=== PATIENT | male | born 1935 | race Caucasian/White ===

== ENCOUNTER → 2016-12-05 | Outpatient (CLI) | payer MEDICARE ==
[~2016-12-05] MED LIST: ACTO35TA PO; ALDA2525 PO; ALPR0.5T3 PO; ASPI81TA11 PO; AUGM875T PO; CENTRUM SILVER PO; DEGA80IN; DEGA80IN SQ; DICY20TA10 PO; FOSA70TA PO; GABA300C3 PO; GABA300C5 PO; GINS100C2; LISI20 PO; LORTA5 PO; MAGN500T4 PO; MOBI15TA PO; NEUR300C PO; OS-CTAB3 PO; SIMV5TAB3 PO; SLOW50TA PO; TAMS0.4C67 PO; ZOLP10TA3 PO
[2016-12-05 09:30] LABS: ALKALINE PHOSPHATASE 62 U/L (45-117); ALT (GPT) 24 U/L (12-78); ANION GAP 8 MEQ/L (5-15); AST (GOT) 20 U/L (15-37); BICARBONATE 26.2 MEQ/L (21.0-32.0); BLOOD UREA NITROGEN 27 MG/DL (7-18); CHLORIDE 105 MEQ/L (98-107); GLOMERULAR FILTRATION RATE 48 ML/MIN (>89); POTASSIUM 4.7 MEQ/L (3.5-5.1); SODIUM (NA) 139 MEQ/L (136-145); TOTAL BILIRUBIN ADULT 0.4 MG/DL (0.2-1.0)
[2016-12-05 10:13] LABS: RHEUMATOID FACTOR TRIGGER LESS THAN 10.0 IU/ML (0.0-14.9)
== END ==
LOC: PLAB 06:35
PROVIDERS: ATTEND Internal Medicine Rheumatology
DX: M06.4 Inflammatory polyarthropathy (principal)
CPT/HCPCS: 36415; 80053; 85652; 86140; 86200; 86430

== ENCOUNTER → 2017-01-07 | Outpatient (CLI) | payer MEDICARE ==
[2017-01-07 09:58] LABS: ANION GAP 9 MEQ/L (5-15); BLOOD UREA NITROGEN 29 MG/DL (7-18); CHLORIDE 106 MEQ/L (98-107); GLOMERULAR FILTRATION RATE 48 ML/MIN (>89); POTASSIUM 4.1 MEQ/L (3.5-5.1); SODIUM (NA) 143 MEQ/L (136-145)
== END ==
LOC: PLAB 06:48
PROVIDERS: ATTEND Internal Medicine Rheumatology
DX: M11.80 Other specified crystal arthropathies, unspecified site (principal); Z79.899 Other long term (current) drug therapy
CPT/HCPCS: 36415; 80048; 85652; 86140

== ENCOUNTER → 2017-06-10 | Outpatient (CLI) | payer MEDICARE ==
[2017-06-10 09:53] LABS: HEMATOCRIT 36.4 % (39.0-51.0); MEAN CELL VOLUME 95.6 FL (80.0-100.0); MEAN CORPUSCULAR HEMOGLOBIN 31.6 PG (27.0-34.0); PLATELET COUNT 319 TH/MM3 (150-450); RED CELL DISTRIBUTION WIDTH 14.4 % (11.6-17.2); RETIC % 0.5 % (0.4-3.0); REVIEW FLAG FINAL; WHITE BLOOD COUNT 6.8 TH/MM3 (4.0-11.0)
[2017-06-10 10:14] LABS: ANION GAP 6 MEQ/L (5-15); AST (GOT) 22 U/L (15-37); BICARBONATE 27.7 MEQ/L (21.0-32.0); BLOOD UREA NITROGEN 39 MG/DL (7-18); CHLORIDE 102 MEQ/L (98-107); GLOMERULAR FILTRATION RATE 48 ML/MIN (>89); GLUCOSE,FASTING 83 MG/DL (74-99); POTASSIUM 4.7 MEQ/L (3.5-5.1); SODIUM (NA) 136 MEQ/L (136-145)
[2017-06-10 10:18] LABS: ALKALINE PHOSPHATASE 73 U/L (45-117); ALT (GPT) 24 U/L (12-78); HDL CHOLESTEROL 62.8 MG/DL (40.0-60.0); LDL CHOLESTEROL 59 MG/DL (0-99); LDL CHOLESTEROL DIRECT 80 MG/DL (0-99); TOTAL BILIRUBIN ADULT 0.4 MG/DL (0.2-1.0)
[2017-06-10 10:23] LABS: WESTERGREN SEDIMENTATION RATE 14 mm/hr (0-20)
[2017-06-10 10:40] LABS: FERRITIN 377 NG/ML (26-388); TRANSFERRIN 170 MG/DL (200-360); TRANSFERRIN IRON PROFILE 170 MG/DL (200-360)
== END ==
LOC: PLAB 06:42
PROVIDERS: ATTEND Internal Medicine Hematology
DX: E78.5 Hyperlipidemia, unspecified (principal); I12.9 Hypertensive chronic kidney disease with stage 1 through stage 4 chronic kidney disease, or unspecified chronic kidney disease; N18.3 Chronic kidney disease, stage 3 (moderate); D63.1 Anemia in chronic kidney disease
CPT/HCPCS: 36415; 80053; 80061; 82607; 82728; 82746; 83540; 83550; 83721; 84403; 84443; 84466; 85027; 85044; 85652

== ENCOUNTER → 2017-10-16 | Outpatient (CLI) | payer MEDICARE ==
[2017-10-16 10:29] LABS: HEMATOCRIT 35.8 % (39.0-51.0); MEAN CELL VOLUME 93.8 FL (80.0-100.0); MEAN CORPUSCULAR HEMOGLOBIN 31.5 PG (27.0-34.0); MEAN CORPUSCULAR HGB CONC 33.5 % (32.0-36.0); MEAN PLATELET VOLUME 6.8 FL (7.0-11.0); PLATELET COUNT 492 TH/MM3 (150-450); RED BLOOD COUNT 3.82 MIL/MM3 (4.50-5.90); RED CELL DISTRIBUTION WIDTH 15.7 % (11.6-17.2); WHITE BLOOD COUNT 8.7 TH/MM3 (4.0-11.0)
[2017-10-16 10:37] LABS: AST (GOT) 16 U/L (15-37); CALCIUM 10.4 MG/DL (8.5-10.1); CHLORIDE 106 MEQ/L (98-107); SODIUM (NA) 137 MEQ/L (136-145)
[2017-10-16 10:40] LABS: BICARBONATE 22.8 MEQ/L (21.0-32.0); BLOOD UREA NITROGEN 50 MG/DL (7-18); CHOLESTEROL 122 MG/DL (120-200); CREATININE 1.86 MG/DL (0.60-1.30); GLOMERULAR FILTRATION RATE 35 ML/MIN (>89); GLUCOSE,FASTING 89 MG/DL (74-99); TRIGLYCERIDES 65 MG/DL (42-150)
[2017-10-16 10:46] LABS: ALKALINE PHOSPHATASE 56 U/L (45-117); ALT (GPT) 22 U/L (12-78); CHOLESTEROL/ HDL RATIO 2.76 RATIO; HDL CHOLESTEROL 44.1 MG/DL (40.0-60.0); LDL CHOLESTEROL 65 MG/DL (0-99); LDL CHOLESTEROL DIRECT 78 MG/DL (0-99); TOTAL BILIRUBIN ADULT 0.4 MG/DL (0.2-1.0); TOTAL PROTEIN 7.5 GM/DL (6.4-8.2)
== END ==
LOC: PLAB 07:00
PROVIDERS: ATTEND Urology
DX: R78.89 Finding of other specified substances, not normally found in blood (principal); C61 Malignant neoplasm of prostate; I10 Essential (primary) hypertension; E78.5 Hyperlipidemia, unspecified
CPT/HCPCS: 36415; 80053; 80061; 83721; 84153; 85027

== ENCOUNTER → 2017-10-29 | Outpatient (CLI) | payer MEDICARE ==
[2017-10-29 10:53] LABS: CREATININE 1.4 MG/DL (0.60-1.30)
== END ==
LOC: PLAB 10:00
PROVIDERS: ATTEND Urology
DX: R94.4 Abnormal results of kidney function studies (principal)
CPT/HCPCS: 36415; 82565; 84520